=== PATIENT | female | born 1990 | race African-American/Black ===

== ENCOUNTER 2017-09-23 00:24 | Emergency (ER) | payer MEDICAID ==
[~2017-09-23] VITALS: Ht 175.3 cm; Wt 97.7 kg
[2017-09-23] MEDS ORDERED: BACITRACIN ZINC OINT UDPKT TOP ONE (02:00)
[2017-09-23] MEDS ORDERED: LIDOCAINE HCL 1%/EPI 1:200,000 30 ML VIAL MC ONE (02:00)
[2017-09-23] MEDS ORDERED: ACETAMINOPHEN WITH CODEINE 300/30MG TABLET PO ONE (02:00)
[2017-09-23 08:07] VITALS: BP 127/78
== END 2017-09-23 08:21 | disposition home or self-care (01) ==
LOC: ER 00:24
DX: S01.01XA Laceration without foreign body of scalp, initial encounter (principal); S01.81XA Laceration without foreign body of other part of head, initial encounter; F17.210 Nicotine dependence, cigarettes, uncomplicated; Y04.2XXA Assault by strike against or bumped into by another person, initial encounter; Y93.89 Activity, other specified; Y92.89 Other specified places as the place of occurrence of the external cause
CPT/HCPCS: 12013; 70450; 70486; 99284

== ENCOUNTER 2021-05-26 01:29 | Emergency (ER) | payer MEDICAID, OTHER ==
[~2021-05-26] VITALS: Ht 180.3 cm; Wt 127.0 kg
[2021-05-26 01:41] VITALS: BP 180/100
[2021-05-26] MEDS ORDERED: IBUPROFEN 600MG TABLET PO ONE (02:00)
[2021-05-26] MEDS ORDERED: BACITRACIN ZINC OINT UDPKT TOP ONE (02:00)
[2021-05-26] MEDS ORDERED: LIDOCAINE HCL/PF 1% 10 MG/ML 5ML VIAL INFIL ONE (02:00)
== END 2021-05-26 03:20 | disposition left against medical advice (07) ==
LOC: ER 01:29
DX: L03.012 Cellulitis of left finger (principal); R56.9 Unspecified convulsions
CPT/HCPCS: 99281; J3490

== ENCOUNTER 2021-05-28 12:42 | Emergency (ER) | payer OTHER | END 2021-05-28 13:10 | disposition home or self-care (01) | LOC: ER 12:42 | DX: Z53.21 Procedure and treatment not carried out due to patient leaving prior to being seen by health care provider (principal) ==

== ENCOUNTER 2021-05-28 13:11 | Emergency (ER) | payer MEDICAID, OTHER ==
[~2021-05-28] VITALS: Ht 177.8 cm; Wt 110.0 kg
[2021-05-28] MEDS ORDERED: MORPHINE SULFATE 4 MG/ML CPJ (NOT FOR IM USE) IV STA (13:21)
[2021-05-28] MEDS ORDERED: ONDANSETRON HCL 4MG/2ML INJ IV STA (13:21)
[2021-05-28] MEDS ORDERED: VANCOMYCIN 1 G PREMIX 200 ML IV SCH (13:30)
[2021-05-28] MEDS ORDERED: AMPICILLIN SOD/SULBACTAM NA 1.5 G in SODIUM CHLORIDE 0.9% 50 ML IV SCH (13:30)
[2021-05-28] MEDS ORDERED: SODIUM CHLORIDE 0.9% 1,000 ML IV ONE (13:30)
[2021-05-28 15:30] LABS: CHLORIDE 107 mEq/L (98-107)
[2021-05-28 15:40] LABS: HCG SCREEN NEGATIVE
[2021-05-28 15:52] LABS: BASOPHILS % 0.4 % (0.0-2.0); EOSINOPHILS % 0.5 % (0.0-5.0); HEMATOCRIT. 41.6 % (36.0-48.0); HEMOGLOBIN. 13.6 g/dL (12.0-16.0); LYMPHOCYTES % 14.8 % (20.0-50.0); MEAN CORPUSCULAR HEMOGLOBIN 28.4 pg (28.0-32.0); MEAN CORPUSCULAR VOLUME 86.7 fL (81.0-99.0); MEAN PLATELET VOLUME 8.4 fl (7.4-10.4); MONOCYTES % 6.5 % (2.0-8.0); NEUTROPHILS % 77.8 % (40.0-76.0); PLATELET 361 x1000/uL (130-400); RED BLOOD CELL COUNT 4.79 mill/uL (4.2-5.4); RED CELL DISTRIBUTION WIDTH 14.5 % (11.6-14.6)
[2021-05-28 17:07] VITALS: BP 175/100
== END 2021-05-28 17:48 | disposition short-term general hospital (02) ==
LOC: ER 13:11
DX: L02.512 Cutaneous abscess of left hand (principal); G40.909 Epilepsy, unspecified, not intractable, without status epilepticus
CPT/HCPCS: 36415; 73130; 80053; 83605; 84703; 85025; 85651; 86140; 87040; 87426; 96365; 96366; 96368; 96375; 99284; J0295; J2270; J2405; J3370; J7030

== ENCOUNTER 2022-01-10 04:08 | Emergency (ER) | payer MEDICAID, OTHER ==
[~2022-01-10] VITALS: Ht 175.3 cm; Wt 120.0 kg
[2022-01-10 04:53] VITALS: BP 177/102
== END 2022-01-10 06:01 | disposition left against medical advice (07) ==
LOC: ER 04:08
DX: Z53.21 Procedure and treatment not carried out due to patient leaving prior to being seen by health care provider (principal)